=== PATIENT | male | born 1965 | race Caucasian/White ===

== ENCOUNTER 2017-02-14 19:06 | Inpatient (IN) | payer MEDICARE ==
[2017-02-14] MEDS ORDERED: Acetaminophen TAB* 325 MG PO ONE (19:37)
[2017-02-14] MEDS ORDERED: NS 0.9% 1000 ML*IV.FLUID IV ONE (19:37)
[2017-02-14] MEDS ORDERED: ceFAZolin 1 GM ADVAN(*) 1 GM in NS 0.9% 50 ML* 50 ML IVPB ONE (19:37)
--- NOTE | 2017-02-14 20:12 | RAD ---
INDICATION: Sepsis. COMPARISON: There are no prior studies available for comparison. TECHNIQUE: A portable view of the chest was obtained. FINDINGS: Cardiac and mediastinal contours appear to be within normal limits. The lungs are clear. No pleural effusion is seen. IMPRESSION: NO EVIDENCE FOR ACUTE DISEASE.
[2017-02-14 20:24] LABS: Hematocrit 42 % (42-52); Hemoglobin 14.3 g/dl (14.0-18.0); Mean Corpuscular HGB Conc 35 g/dl (31-36); Mean Corpuscular Hemoglobin 32 pg (27-31); Mean Corpuscular Volume 92 fL (80-94); Mean Platelet Volume 8 um3 (7.4-10.4); Red Blood Count 4.53 10^6/ul (4.0-5.4); Red Cell Distribution Width 13 % (10.5-15); White Blood Count 16.6 10^3/ul (3.5-10.8)
[2017-02-14 20:29] LABS: Add Diff/Slide Review? Slide Review Added; Comments Flag Yes
[2017-02-14 20:31] LABS: Urine Bilirubin Negative (Negative); Urine Glucose 3+(>=500 mg/dL) (Negative); Urine Nitrite Negative (Negative)
--- NOTE | 2017-02-14 20:36 | HP ---
H&P (Free Text) History and Physical: Mr Chaudhary is a 51M HX remote spinal injury w/ paraparesis presenting with sepsis 2nd cellulitis requiring admission for IVFs, IV ABX, & close monitoring to reduce risk of morbidity/mortality.
[2017-02-14 20:39] LABS: BUN/Creatinine Ratio 7.8 (8-20); Calcium 9.1 mg/dL (8.6-10.3); EGFR African American 138.1 (>60); EGFR Non-African American 107.4 (>60); Globulin 3.6 g/dL (2-4); Potassium 3.9 mmol/L (3.5-5.0); Total Bilirubin 0.7 mg/dL (0.2-1.0); Total Protein 7.6 g/dL (6.4-8.9)
[2017-02-14 20:41] LABS: Troponin I 0.03 ng/mL (<0.04)
[2017-02-14] MEDS ORDERED: LORazepam TAB(*) 1 MG PO SCH (22:00)
[2017-02-14] MEDS: Ibuprofen TAB* 600 MG PO PRN (22:50)
[2017-02-14] MEDS ORDERED: Ondansetron INJ* 2 MG/ML VIAL IV PRN (22:52)
[2017-02-14] MEDS: NS 0.9% 1000 ML* 1,000 ML IV SCH (23:18)
[2017-02-14] MEDS: Heparin VIAL(*) 5000 UNITS/ML VIAL (FIVE THOUSAND) SUBCUT SCH (23:28)
[2017-02-15] MEDS ORDERED: ceFAZolin 1 GM VIAL(*) 1 GM in NS 0.9% 50 ML* 50 ML IVPB ONE ×2
--- NOTE | 2017-02-15 00:10 | HP ---
CC: Dr. Pascual * HISTORY AND PHYSICAL: DATE OF ADMISSION: 02/14/17 PRIMARY CARE PROVIDER: None. ATTENDING PHYSICIAN: Blas Park MD * (dictated by Tiara Santiago NP). CHIEF COMPLAINT: Right lower extremity pain, redness and swelling. HISTORY OF PRESENT ILLNESS: Mr. 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 The patient states that 5 days ago, he developed fever and chills and he started taking Cipro 500 mg oral twice daily. He took this for 3 days. He reports loss of appetite and anxiety. He then noticed that his right lower extremity was red, swollen, and warm to the touch. He has lost his appetite. He reports straight cathing as needed throughout the day. He states that he had Cipro on hand from previous urinary tract infections. He denies any chest pain, cough, shortness of breath, nausea, vomiting, or diarrhea. He reports chronic low back pain and right hip pain due to an unhealed right femoral neck fracture. He is wheelchair bound and transfers himself. He reports that his right foot is usually larger than his left foot, but notes that often when he gets fevers, both legs swell more than usual. Due to his symptoms, he decided to present to the emergency room for further evaluation of his symptoms. While in the emergency room, the patient had labs that were significant for white blood cell count of 16.6, sodium of 124. He had a urinalysis that was unremarkable. He had a chest x-ray showing no evidence for acute disease. He had a lactic acid of 1.4 and the patient received 2450 mL of normal saline and IV ceftriaxone in addition to Tylenol. He was noted to have a 101.9 temperature. The hospitalists were asked to evaluate the patient for admission. PAST MEDICAL HISTORY: 1. 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 2. Hypertension. 3. Right femoral neck fracture. 4. Chronic low back pain. PAST SURGICAL HISTORY: Status post a fusion at T12. HOME MEDICATIONS: Include ibuprofen 400 mg oral every 6 hours as needed for fever or pain. ALLERGIES: ERYTHROMYCIN. FAMILY HISTORY: The patient denies any family history of coronary artery disease, diabetes mellitus. The patient's parents both had a history of skin cancer and the father with a history of rectal cancer. SOCIAL HISTORY: The patient quit smoking 8 months ago. Prior to that, he had a 20 to 25-year half a pack a day smoking history. The patient drinks 2 to 6 alcoholic beverages daily. He denies recreational drug use. The patient lives with his significant other, Quinn Funes. She will be his surrogate decision maker in the event he is unable to make decisions for himself. REVIEW OF SYSTEMS: I performed a 14-point review of systems. All the pertinent positives and negatives are mentioned in the history of present illness. The remaining review of systems are negative. PHYSICAL EXAMINATION GENERAL APPEARANCE: The patient is alert, pleasant, appears to be in no acute distress. VITAL SIGNS: Temperature 101.9, heart rate 143, respiratory rate 21, O2 sat 97 % on room air, blood pressure 183/92. HEENT: Normocephalic, atraumatic. Pupils are equal and reactive to light. Extraocular movements are intact. RESPIRATORY: There is no accessory muscle use. The lungs are clear to auscultation bilaterally. CARDIAC: Regular rate and rhythm. S1, S2 present. There are no murmurs, rubs or gallops heard. ABDOMEN: Soft, nontender, nondistended. There are bowel sounds present x4. EXTREMITIES: There is bilateral lower extremities 1+ on the left, 2+ on the right. DP and PT pulses are 2+ and symmetric. MUSCULOSKELETAL: There is no clubbing or cyanosis noted. The patient exhibits good strength in his upper extremities. NEUROLOGIC: The patient is alert and oriented x4. PSYCHOLOGIC: The patient is calm and cooperative. SKIN: The patient has erythema and warmth to his right lower extremity. DIAGNOSTIC STUDIES/LABORATORY DATA: Sodium 124, potassium 3.9, chloride 93, CO2 23, BUN 6, creatinine 0.77, and glucose 132. White blood cell count 16.6, hemoglobin 14.3, hematocrit 42, platelet count 237,000. Lactic acid 1.4. Urinalysis significant for specific gravity of 1.003 and glucose 3+. Chest x-ray from today. Radiologist's impression: No evidence for acute disease. IMPRESSION: Mr. Chaudhary is a 51-year-old male with past medical history significant for hypertension, T12 paraplegia, right femoral neck fracture and chronic low back pain, who presented to the emergency room with complaints of fever, chills, right lower extremity swelling, redness and warmth. He will admitted as an inpatient for sepsis secondary to cellulitis. ASSESSMENT/PLAN: 1. Sepsis secondary to cellulitis. The patient had blood cultures drawn. He received a bolus of normal saline of 2450 mL while in the emergency room. He also was initiated on cefazolin. We will continue the patient on cefazolin q.8 hours. We will follow his white blood cell count. There were no obvious open areas in his skin. We did attempt to obtain a wound culture in the emergency room. The patient is meeting SIRS criteria on admission with fever, tachycardia , tachypnea and leukocytosis. He has received fluid resuscitation and antibiotics. According to the qSOFA criteria, the patient has 1 point with tachypnea. 2. Hyponatremia. I suspect this is secondary to hypovolemia. We will give the patient IV fluids overnight. If this does not improve, we will do further workup for the hyponatremia. 3. Hypertension. The patient has been hypertensive in the emergency room. He reports that he is often hypertensive due to anxiety. His last blood pressure was 163/65. I will continue to monitor and consider starting him on antihypertensives if he continues to be hypertensive. 4. Tachycardia. I suspect this is in the setting of sepsis. The patient is receiving IV fluids. We will monitor him on telemetry. 5. Elevated troponin. The patient has a troponin of 0.03. He denies any chest pain, shortness of breath. He will be monitored on telemetry. No further workup will be completed at this time. 6. Alcohol abuse. The patient currently drinks 2 to 6 alcoholic beverages daily. We will place him on a [place] protocol and give him thiamine, multivitamins and folic acid. 7. Fluids, electrolytes, and nutrition. Regular diet. 8. Code status. Full code. 9. DVT prophylaxis. The patient is at high risk and will be placed on subcu heparin. 10. Disposition. Inpatient. TIME SPENT: The time for this admission was approximately 60 minutes, greater than half of that was spent with the patient and significant other discussing medications, past medical history, and the events leading up to his arrival today and performing a physical examination. TIARA BOWMAN, EYE SURGEON [id number]/[facility] #: [id number] [facility] CENTERSandra
[2017-02-15] MEDS: Acetaminophen TAB* 325 MG PO PRN ×6 (00:15→22:35)
[2017-02-15 07:09] LABS: Hematocrit 36 % (42-52); Hemoglobin 12.5 g/dl (14.0-18.0); Mean Corpuscular HGB Conc 35 g/dl (31-36); Mean Corpuscular Hemoglobin 32 pg (27-31); Mean Corpuscular Volume 93 fL (80-94); Mean Platelet Volume 8 um3 (7.4-10.4); Red Blood Count 3.93 10^6/ul (4.0-5.4); Red Cell Distribution Width 13 % (10.5-15)
[2017-02-15] MEDS: Heparin VIAL(*) 5000 UNITS/ML VIAL (FIVE THOUSAND) SUBCUT SCH ×3 (07:09→21:25)
[2017-02-15 07:20] LABS: BUN/Creatinine Ratio 7.1 (8-20); EGFR African American 154.2 (>60); EGFR Non-African American 119.9 (>60); Potassium 3.8 mmol/L (3.5-5.0)
[2017-02-15] MEDS ORDERED: ceFAZolin* 2 GM in NS 100 MLS Q8HR IVPB SCH (08:00)
[2017-02-15] MEDS: NS 0.9% 1000 ML* 1,000 ML IV SCH ×2 (08:47→23:49)
[2017-02-15] MEDS: ceFAZolin 2 GM PREMIX (*) 2 GM/50 ML BAG IVPB SCH ×3 (08:48→23:51)
[2017-02-15] MEDS: Folic Acid TAB* 1 MG PO SCH (08:49)
[2017-02-15] MEDS: Multivitamins/Minerals TAB PO SCH (08:49)
[2017-02-15] MEDS: Thiamine TAB* 100 MG TAB PO SCH (08:49)
[2017-02-15] MEDS: Ibuprofen TAB* 600 MG PO PRN ×2 (11:22→21:17)
--- NOTE | 2017-02-15 20:43 | PN ---
Subjective Date of Service: 02/15/17 Interval History: . fever reduced paraplegic from remote traumatic accident - lower extremity swelling is baseline , but RLE is more than normal. bright red areas in mid tibial region, anteriorly and laterally -- no skin breakdown noted. on ancef and doing well. IVF ongoing dark concentrated urine at bedside - encouraged PO intake and fluids especially! . Family History: Unchanged from Admission Social History: Unchanged from Admission Past Medical History: Unchanged from Admission Objective Active Medications: . Acetaminophen (Tylenol Tab*) 650 mg PO Q4H PRN PRN Reason: FEVER/PAIN Last Admin: 02/15/17 17:39 Dose: 650 mg Folic Acid (Folvite Tab*) 1 mg PO DAILY [facility] Last Admin: 02/15/17 08:49 Dose: 1 mg Heparin Sodium (Porcine) (Heparin Vial(*)) 5,000 units SUBCUT Q8HR [facility] Last Admin: 02/15/17 13:30 Dose: 5,000 units Sodium Chloride (Ns 0.9% 1000 Ml*) 1,000 mls @ 125 mls/hr IV PER RATE [facility] Last Admin: 02/15/17 08:47 Dose: 125 mls/hr Cefazolin Sodium/Dextrose (Kefzol 2 Gm Premix(*)) 2 gm in 50 mls @ 100 mls/hr IVPB Q8H [facility] Last Admin: 02/15/17 16:55 Dose: 100 mls/hr Ibuprofen (Motrin Tab*) 600 mg PO Q6H PRN PRN Reason: FEVER/PAIN Last Admin: 02/15/17 11:22 Dose: 600 mg Lorazepam (Ativan Tab(*)) 0 - 6 mg PO .PER [facility] PROTOCOL [facility] PRN Reason: Protocol Multivitamins/Minerals (Theragran/Minerals Tab*) 1 tab PO DAILY [facility] Last Admin: 02/15/17 08:49 Dose: 1 tab Ondansetron HCl (Zofran Inj*) 4 mg IV Q6H PRN PRN Reason: NAUSEA Thiamine HCl (Vitamin B-1 Tab*) 100 mg PO DAILY [facility] Last Admin: 02/15/17 08:49 Dose: 100 mg . Vital Signs 02/14/17 02/14/17 02/14/17 20:39 21:00 21:21 Temperature Pulse Rate 117 116 Respiratory 18 18 22 Rate Blood Pressure 144/72 (mmHg) O2 Sat by Pulse 96 98 Oximetry 02/14/17 02/14/17 02/14/17 21:30 21:46 22:00 Temperature 99.1 F Pulse Rate 114 124 Respiratory 17 25 22 Rate Blood Pressure 145/70 156/90 (mmHg) O2 Sat by Pulse 98 98 Oximetry Oxygen Devices in Use Now: None Appearance: NAD Eyes: No Scleral Icterus Ears/Nose/Mouth/Throat: Clear Oropharnyx Neck: NL Appearance and Movements; NL JVP Respiratory: Symmetrical Chest Expansion and Respiratory Effort Cardiovascular: NL Sounds; No Murmurs; No JVD Abdominal: NL Sounds; No Tenderness; No Distention Lymphatic: No Cervical Adenopathy Extremities: - - RLE>LLE edema with red cellulitic tissue on R anterio-lateral leg. Skin: No Nodules or Sclerosis, - - see extremity for skin description Neurological: Alert and Oriented x 3 Lines/Tubes/Other Access: Clean, Dry and Intact Peripheral IV Nutrition: Taking PO's Result Diagrams: 02/15/17 06:18 02/15/17 06:50 Microbiology and Other Data: Microbiology 02/14/17 20:36 Skin and Soft Tissue MRSA/MSSA (PCR - Final Foot Right Mrsa Negative S.aureus Positive Gram Stain - Final Wound Culture - Preliminary Staphylococcus Aureus Assess/Plan/Problems-Billing . Assessment: 51 yo paraplegic man with RLE cellulitis and SEPSIS. . Current meds reviewed: - Acetaminophen (Tylenol Tab*) 650 mg PO Q4H PRN FEVER/PAIN - Folic Acid (Folvite Tab*) 1 mg PO DAILY - Heparin 5,000 units SUBCUT Q8HR - NS 1,000 mls @ 125 mls/hr IV - Cefazolin 2 gm IVPB Q8H - Ibuprofen (Motrin Tab) 600 mg PO Q6H PRN FEVER/PAIN - Lorazepam (Ativan Tab) 0 - 6 mg PO .PER [facility] PROTOCOL - Multivitamins/Minerals (Theragran/Minerals Tab) 1 tab PO DAILY - Ondansetron HCl (Zofran Inj) 4 mg IV Q6H PRN NAUSEA - Thiamine HCl (Vitamin B-1 Tab) 100 mg PO DAILY - - Patient Problems (1) Cellulitis of right leg without foot Current Visit: Yes Status: Acute Priority: High Code(s): L03.115 - CELLULITIS OF RIGHT LOWER LIMB (2) Sepsis Current Visit: Yes Status: Acute Priority: High Comment: - Aggressive IVF - high fever, elevated WBC, tachycardia on admission - obviously infected leg (3) Alcohol abuse Current Visit: Yes Status: Acute Priority: High Code(s): F10.10 - ALCOHOL ABUSE, UNCOMPLICATED Comment: - on [facility] protocol - MVI, folate, thiamine ongoing. - aggressive IVF
[2017-02-15] MEDS ORDERED: hydrALAZINE IV* 20 MG/ML VIAL IV PRN (22:43)
[2017-02-15] MEDS: CMCS: Melatonin (NF) 3 MG TAB PO PRN (23:53)
[2017-02-16] MEDS: Heparin VIAL(*) 5000 UNITS/ML VIAL (FIVE THOUSAND) SUBCUT SCH ×3 (06:09→21:37)
[2017-02-16] MEDS: Acetaminophen TAB* 325 MG PO PRN ×4 (06:18→22:32)
[2017-02-16] MEDS: Multivitamins/Minerals TAB PO SCH (09:15)
[2017-02-16] MEDS: Thiamine TAB* 100 MG TAB PO SCH (09:15)
[2017-02-16] MEDS: Folic Acid TAB* 1 MG PO SCH (09:15)
[2017-02-16] MEDS: Ibuprofen TAB* 600 MG PO PRN ×2 (09:21→17:19)
[2017-02-16] MEDS: ceFAZolin 2 GM PREMIX (*) 2 GM/50 ML BAG IVPB SCH ×2 (09:51→17:21)
[2017-02-16] MEDS: NS 0.9% 1000 ML* 1,000 ML IV SCH (12:49)
--- NOTE | 2017-02-16 17:24 | PN ---
Subjective Date of Service: 02/16/17 Interval History: . Residual fevers Feels much better than at admission Eating ok Still significant leg swelling Denies new s/sx Thinks he may not be ready to go home on Sunday...does not feel at his baseline (though better). . Family History: Unchanged from Admission Social History: Unchanged from Admission Past Medical History: Unchanged from Admission Objective Active Medications: . Acetaminophen (Tylenol Tab*) 650 mg PO Q4H PRN PRN Reason: FEVER/PAIN Last Admin: 02/16/17 12:48 Dose: 650 mg Folic Acid (Folvite Tab*) 1 mg PO DAILY [facility] Last Admin: 02/16/17 09:15 Dose: 1 mg Heparin Sodium (Porcine) (Heparin Vial(*)) 5,000 units SUBCUT Q8HR [facility] Last Admin: 02/16/17 14:33 Dose: 5,000 units Hydralazine HCl (Apresoline Iv*) 10 mg IV Q4H PRN PRN Reason: Systolic >170 Sodium Chloride (Ns 0.9% 1000 Ml*) 1,000 mls @ 125 mls/hr IV PER RATE [facility] Last Admin: 02/16/17 12:49 Dose: 125 mls/hr Cefazolin Sodium/Dextrose (Kefzol 2 Gm Premix(*)) 2 gm in 50 mls @ 100 mls/hr IVPB Q8H [facility] Last Admin: 02/16/17 09:51 Dose: 100 mls/hr Ibuprofen (Motrin Tab*) 600 mg PO Q6H PRN PRN Reason: FEVER/PAIN Last Admin: 02/16/17 09:21 Dose: 600 mg Melatonin (Melatonin (Nf)) 3 mg PO BEDTIME PRN; Protocol PRN Reason: Sleep Last Admin: 02/15/17 23:53 Dose: 3 mg Multivitamins/Minerals (Theragran/Minerals Tab*) 1 tab PO DAILY [facility] Last Admin: 02/16/17 09:15 Dose: 1 tab Ondansetron HCl (Zofran Inj*) 4 mg IV Q6H PRN PRN Reason: NAUSEA Thiamine HCl (Vitamin B-1 Tab*) 100 mg PO DAILY [facility] Last Admin: 02/16/17 09:15 Dose: 100 mg . Vital Signs 11/09/17 11/09/17 11/09/17 18:32 20:00 20:31 Temperature 102.6 F 101.8 F Pulse Rate 109 109 Respiratory 17 18 19 Rate Blood Pressure 153/73 174/74 (mmHg) O2 Sat by Pulse 97 96 98 Oximetry 02/15/17 02/15/17 02/15/17 21:23 22:20 22:40 Temperature 102.1 F Pulse Rate Respiratory Rate Blood Pressure 185/90 160/70 (mmHg) O2 Sat by Pulse Oximetry Oxygen Devices in Use Now: None Appearance: mid aged, appears stated age Ears/Nose/Mouth/Throat: Clear Oropharnyx Respiratory: Symmetrical Chest Expansion and Respiratory Effort Cardiovascular: NL Sounds; No Murmurs; No JVD Abdominal: NL Sounds; No Tenderness; No Distention Extremities: - - R>L edema, mostly in feet. Skin: - - red R rabago and lateral lower leg...no extension from previous exam. hidden crack in between toes from which wound culture was taken. this was not the center of his cellulitis and I favor strep as a more likely causal agent at the level of his rabago. Neurological: Alert and Oriented x 3 Lines/Tubes/Other Access: Clean, Dry and Intact Peripheral IV Nutrition: Taking PO's Result Diagrams: 02/15/17 06:18 02/15/17 06:50 Microbiology and Other Data: Microbiology 02/14/17 20:36 Skin and Soft Tissue MRSA/MSSA (PCR - Final Foot Right Mrsa Negative S.aureus Positive Gram Stain - Final Wound Culture - Preliminary Staphylococcus Aureus Assess/Plan/Problems-Billing . Assessment: 51 yo paraplegic man with RLE cellulitis and SEPSIS. . Current meds reviewed: - Acetaminophen (Tylenol Tab*) 650 mg PO Q4H PRN FEVER/PAIN - Folic Acid (Folvite Tab*) 1 mg PO DAILY - Heparin 5,000 units SUBCUT Q8HR - NS 1,000 mls @ 125 mls/hr IV - Cefazolin 2 gm IVPB Q8H - Ibuprofen (Motrin Tab) 600 mg PO Q6H PRN FEVER/PAIN - Lorazepam (Ativan Tab) 0 - 6 mg PO .PER [facility] PROTOCOL - Multivitamins/Minerals (Theragran/Minerals Tab) 1 tab PO DAILY - Ondansetron HCl (Zofran Inj) 4 mg IV Q6H PRN NAUSEA - Thiamine HCl (Vitamin B-1 Tab) 100 mg PO DAILY . - Patient Problems (1) Cellulitis of right leg without foot Current Visit: Yes Status: Acute Priority: High Code(s): L03.115 - CELLULITIS OF RIGHT LOWER LIMB Comment: - Staph (MSSA) - from wound between toes. S to ancef --> will continue - no fevers > 100F (imprved) - WBC down, will follow - check CRP . (2) Sepsis Current Visit: Yes Status: Acute Priority: High Comment: - Aggressive IVF - now can stop - high fever, elevated WBC, tachycardia on admission - obviously infected leg. (3) Alcohol abuse Current Visit: Yes Status: Acute Priority: High Code(s): F10.10 - ALCOHOL ABUSE, UNCOMPLICATED Comment: - on [facility] protocol / no signs of withdrawal so far. - MVI, folate, thiamine ongoing. - aggressive IVF at admission for 24+ hours (4) Paraplegic spinal paralysis Current Visit: Yes Status: Chronic Priority: High Code(s): G82.20 - PARAPLEGIA, UNSPECIFIED Comment: - noted
[2017-02-16 18:01] LABS: Hematocrit 39 % (42-52); Hemoglobin 13.1 g/dl (14.0-18.0); Mean Corpuscular HGB Conc 34 g/dl (31-36); Mean Corpuscular Hemoglobin 31 pg (27-31); Mean Corpuscular Volume 93 fL (80-94); Mean Platelet Volume 8 um3 (7.4-10.4); Red Blood Count 4.18 10^6/ul (4.0-5.4); Red Cell Distribution Width 13 % (10.5-15); White Blood Count 13.5 10^3/ul (3.5-10.8)
[2017-02-16 18:17] LABS: Albumin 3.2 g/dL (3.2-5.2); BUN/Creatinine Ratio 7.6 (8-20); C Reactive Protein 259.8 mg/L (< 5.00); Calcium 8.4 mg/dL (8.6-10.3); EGFR Non-African American 128.3 (>60); Globulin 3.4 g/dL (2-4); Potassium 4.2 mmol/L (3.5-5.0); Total Bilirubin 0.6 mg/dL (0.2-1.0); Total Protein 6.6 g/dL (6.4-8.9)
[2017-02-16] MEDS: CMCS: Melatonin (NF) 3 MG TAB PO PRN (22:31)
[2017-02-17] MEDS: ceFAZolin 2 GM PREMIX (*) 2 GM/50 ML BAG IVPB SCH ×3 (00:18→16:54)
[2017-02-17] MEDS: Ibuprofen TAB* 600 MG PO PRN ×3 (00:35→16:53)
[2017-02-17] MEDS: Acetaminophen TAB* 325 MG PO PRN ×3 (02:32→22:13)
[2017-02-17] MEDS: Heparin VIAL(*) 5000 UNITS/ML VIAL (FIVE THOUSAND) SUBCUT SCH ×3 (05:43→22:13)
[2017-02-17] MEDS: Thiamine TAB* 100 MG TAB PO SCH (08:39)
[2017-02-17] MEDS: Multivitamins/Minerals TAB PO SCH (08:39)
[2017-02-17] MEDS: Folic Acid TAB* 1 MG PO SCH (08:40)
[2017-02-17] MEDS: Sulfamethox/Trimethoprim DS 800/160* TAB PO SCH ×2 (10:24→22:13)
--- NOTE | 2017-02-17 13:05 | RAD ---
HISTORY: Right leg edema COMPARISONS: None relevant TECHNIQUE: Multiple transverse and longitudinal ultrasound images were obtained of the right lower extremity from the level of the common femoral vein inferiorly through to the infrapopliteal veins using grayscale, color Doppler, and spectral Doppler imaging with and without compression and with augmentation. Comparison images were obtained of the contralateral common femoral vein. FINDINGS: VEINS: The venous system of the right lower extremity is compressible throughout its course, with normal flow on color Doppler imaging and normal response to augmentation on spectral Doppler imaging. SOFT TISSUES: Unremarkable. OTHER FINDINGS: There are subcentimeter short axis lymph nodes in the right inguinal region IMPRESSION: 1. NO RIGHT LOWER EXTREMITY DEEP VEIN THROMBOSIS 2. SUBCENTIMETER SHORT AXIS RIGHT INGUINAL LYMPH NODES
[2017-02-17] MEDS: Tolnaftate 1% CREAM* 15 GM TOPICAL SCH ×2 (13:25→22:19)
--- NOTE | 2017-02-17 18:05 | PN ---
Subjective Date of Service: 02/17/17 Interval History: . Still getting better. not at baseline WBC marginally u checking doppler adding bactrim. adding tinactin for fungal / cutaneous rui infection. asking staff mechanical engineer for gentle compression likely dc tomorrow. . Family History: Unchanged from Admission Social History: Unchanged from Admission Past Medical History: Unchanged from Admission Objective Active Medications: Acetaminophen (Tylenol Tab*) 650 mg PO Q4H PRN PRN Reason: FEVER/PAIN Last Admin: 02/17/17 13:12 Dose: 650 mg Folic Acid (Folvite Tab*) 1 mg PO DAILY [facility] Last Admin: 02/17/17 08:40 Dose: 1 mg Heparin Sodium (Porcine) (Heparin Vial(*)) 5,000 units SUBCUT Q8HR [facility] Last Admin: 02/17/17 13:13 Dose: 5,000 units Hydralazine HCl (Apresoline Iv*) 10 mg IV Q4H PRN PRN Reason: Systolic >170 Cefazolin Sodium/Dextrose (Kefzol 2 Gm Premix(*)) 2 gm in 50 mls @ 100 mls/hr IVPB Q8H [facility] Last Admin: 02/17/17 16:54 Dose: 100 mls/hr Ibuprofen (Motrin Tab*) 600 mg PO Q6H PRN PRN Reason: FEVER/PAIN Last Admin: 02/17/17 16:53 Dose: 600 mg Melatonin (Melatonin (Nf)) 3 mg PO BEDTIME PRN; Protocol PRN Reason: Sleep Last Admin: 02/16/17 22:31 Dose: 3 mg Multivitamins/Minerals (Theragran/Minerals Tab*) 1 tab PO DAILY [facility] Last Admin: 02/17/17 08:39 Dose: 1 tab Ondansetron HCl (Zofran Inj*) 4 mg IV Q6H PRN PRN Reason: NAUSEA Thiamine HCl (Vitamin B-1 Tab*) 100 mg PO DAILY [facility] Last Admin: 02/17/17 08:39 Dose: 100 mg Tolnaftate (Tinactin 1% Cream*) 1 applic TOPICAL BID [facility] Last Admin: 02/17/17 13:25 Dose: 1 applic Trimethoprim/Sulfamethoxazole (Bactrim Ds 800/160 Tab*) 1 tab PO BID [facility] Last Admin: 02/17/17 10:24 Dose: 1 tab Vital Signs 02/16/17 02/16/1717 19:53 20:00 00:36 Temperature 99.4 F 101.0 F Pulse Rate 100 106 Respiratory 14 16 Rate Blood Pressure 150/71 149/61 (mmHg) O2 Sat by Pulse 97 97 98 Oximetry 02/17/17 02/17/17 02/17/17 03:26 08:00 08:04 Temperature 97.9 F 99.0 F Pulse Rate 97 93 Respiratory 20 16 16 Rate Blood Pressure 124/68 141/69 (mmHg) O2 Sat by Pulse 98 100 98 Oximetry 02/17/17 02/17/17 02/17/17 11:09 16:05 17:56 Temperature 97.7 F 98.5 F Pulse Rate 98 111 Respiratory 16 22 Rate Blood Pressure 153/82 175/93 168/82 (mmHg) O2 Sat by Pulse 99 100 Oximetry Oxygen Devices in Use Now: None Result Diagrams: 02/16/17 17:46 02/16/17 17:46 Microbiology and Other Data: Microbiology 02/14/17 20:36 Skin and Soft Tissue MRSA/MSSA (PCR - Final Foot Right Mrsa Negative S.aureus Positive Gram Stain - Final Wound Culture - Preliminary Staphylococcus Aureus Assess/Plan/Problems-Billing . Assessment: 51 yo paraplegic man with RLE cellulitis and SEPSIS. . Current meds reviewed: - Acetaminophen (Tylenol Tab*) 650 mg PO Q4H PRN FEVER/PAIN - Folic Acid (Folvite Tab*) 1 mg PO DAILY - Heparin 5,000 units SUBCUT Q8HR - NS 1,000 mls @ 125 mls/hr IV - Cefazolin 2 gm IVPB Q8H - Ibuprofen (Motrin Tab) 600 mg PO Q6H PRN FEVER/PAIN - Lorazepam (Ativan Tab) 0 - 6 mg PO .[facility] PROTOCOL - Multivitamins/Minerals (Theragran/Minerals Tab) 1 tab PO DAILY - Ondansetron HCl (Zofran Inj) 4 mg IV Q6H PRN NAUSEA - Thiamine HCl (Vitamin B-1 Tab) 100 mg PO DAILY . - Patient Problems (1) Cellulitis of right leg without foot Current Visit: Yes Status: Acute Priority: High Code(s): L03.115 - CELLULITIS OF RIGHT LOWER LIMB Comment: - Staph (MSSA) - from wound between toes. S to ancef --> will continue - no fevers > 100F (imprved) - WBC down, will follow - check CRP . (2) Sepsis Current Visit: Yes Status: Acute Priority: High Comment: - Aggressive IVF - now can stop - high fever, elevated WBC, tachycardia on admission - obviously infected leg. (3) Alcohol abuse Current Visit: Yes Status: Acute Priority: High Code(s): F10.10 - ALCOHOL ABUSE, UNCOMPLICATED Comment: - on [facility] protocol / no signs of withdrawal so far. - MVI, folate, thiamine ongoing. - aggressive IVF at admission for 24+ hours (4) Paraplegic spinal paralysis Current Visit: Yes Status: Chronic Priority: High Code(s): G82.20 - PARAPLEGIA, UNSPECIFIED Comment: - noted
[2017-02-17] MEDS: CMCS: Melatonin (NF) 3 MG TAB PO PRN (22:33)
[2017-02-18] MEDS: ceFAZolin 2 GM PREMIX (*) 2 GM/50 ML BAG IVPB SCH ×2 (00:50→08:11)
[2017-02-18] MEDS: Ibuprofen TAB* 600 MG PO PRN (00:58)
[2017-02-18] MEDS: Heparin VIAL(*) 5000 UNITS/ML VIAL (FIVE THOUSAND) SUBCUT SCH (05:34)
[2017-02-18 06:51] LABS: Hematocrit 36 % (42-52); Hemoglobin 12.1 g/dl (14.0-18.0); Mean Corpuscular HGB Conc 34 g/dl (31-36); Mean Corpuscular Hemoglobin 32 pg (27-31); Mean Corpuscular Volume 93 fL (80-94); Mean Platelet Volume 8 um3 (7.4-10.4); Red Blood Count 3.81 10^6/ul (4.0-5.4); Red Cell Distribution Width 13 % (10.5-15); White Blood Count 12.5 10^3/ul (3.5-10.8)
[2017-02-18 06:55] LABS: Add Diff/Slide Review? Slide Review Added; Comments Flag Yes
[2017-02-18 07:10] LABS: BUN/Creatinine Ratio 7.6 (8-20); Calcium 8.5 mg/dL (8.6-10.3); EGFR Non-African American 128.3 (>60); Magnesium 2.2 mg/dL (1.9-2.7); Potassium 4.2 mmol/L (3.5-5.0)
[2017-02-18] MEDS: Sulfamethox/Trimethoprim DS 800/160* TAB PO SCH (08:11)
[2017-02-18] MEDS: Thiamine TAB* 100 MG TAB PO SCH (08:11)
[2017-02-18] MEDS: Multivitamins/Minerals TAB PO SCH (08:11)
[2017-02-18] MEDS: Folic Acid TAB* 1 MG PO SCH (08:12)
[2017-02-18] MEDS: Tolnaftate 1% CREAM* 15 GM TOPICAL SCH (08:18)
[2017-02-18] MEDS: Acetaminophen TAB* 325 MG PO PRN (11:32)
[2017-02-18 12:38] VITALS: BP 166/78
--- NOTE | 2017-02-18 20:22 | PN ---
Hospitalist Progress Note . HOSPITALIST DISCHARGE NOTE: See dc instructions and summary by me. Patient stable for dc dc instructions reviewed with the patient at the bedside. DC patient home today.
--- NOTE | 2017-02-19 06:59 | DS ---
DISCHARGE SUMMARY: DATE OF ADMISSION: 02/14/17 DATE OF DISCHARGE: 02/18/17 PRIMARY CARE PROVIDER: None. PRINCIPAL DISCHARGE DIAGNOSIS: Right lower extremity cellulitis and sepsis in the setting of T12 paraplegia and chronic right lower extremity swelling following remote trauma. SECONDARY DIAGNOSIS: 1. 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 2. Baseline hypertension. 3. History of right femoral neck fracture and right tib-fib fracture with chronic lymphedema on the ipsilateral extremity. 4. Chronic low back pain. DISCHARGE MEDICATION REGIMEN: 1. Ibuprofen 400 mg by mouth every 6 hours as needed for fever/pain. 2. New: Bactrim double strength 1 tab by mouth twice daily x6 days (12 tabs dispensed). 3. Tinactin ([id number]) antifungal foot spray. STUDIES DONE DURING THE HOSPITALIZATION: Right lower extremity ultrasound showing no DVT. HISTORY OF PRESENT ILLNESS AND HOSPITAL COURSE: Please see the H and P by nurse practitioner Yanna Hugo under the supervision of Blas Park MD. This was on 02/14/17. In brief, Mr. Chaudhary is a 51-year-old man with no primary care provider, who came to the emergency room after 5 days of fever and chills. The patient was prescribed, in a walk-in clinic, ciprofloxacin twice daily. He took this for 3 days and lost his appetite and noticed his right lower extremity was becoming increasingly red and swollen and warm to the touch. The patient had Cipro from previous urinary tract infection. The patient is wheelchair bound and can transfer himself. He is accompanied by a girlfriend who helps him in the outpatient setting. The patient was noted to have an elevated white blood cell count of 16.6 and a depressed sodium at 124. The patient was started on IV ceftriaxone and his temperature was measured at 101.9. The patient was deemed to be septic. The patient was admitted to the medicine service. Again, he was given initially ceftriaxone, but then changed to Ancef on admission. The patient had aggressive fluids given for 36 hours. The patient's blood pressure remained adequate. His fever curve gently trended downward. He had a fairly massive swelling. On day 3 he was transitioned to oral Bactrim in addition to Ancef, and he is being discharged on hospital day 4, now that he is not having recurrent fevers. We did try a lower extremity compression with Nilo bandages. I recommended out-patient compression stockings, but the patient is concerned about his ability to get these on and off. I have given him the number to the physician referral center at the [facility] ([phone]) . I asked that he establish a primary care provider and issues like this can be worked on beyond the hospitalization. The patient was also counseled about skin integrity and I think part of the problem was a fungal infection in his toes which provides a portal of entry for cutaneous bacterial elaine. The patient agreed to be more vigilant in his skin care and try to reduce lower extremity edema. We talked about elevating his extremities and that lower extremity edema was also a risk factor for recurrent cellulitis. We further discussed the concept that cellulitis could be a recurrent problem in skin areas that have been afflicted by infection/cellulitis. Mr. Chaudhary is currently stable. He will complete his course of Bactrim. I gave him careful return to ED instructions, should he experience worrisome symptoms including, but not limited to, recurrent fevers, chills, worsening leg erythema or swelling or any other worrisome symptoms and he said he will comply with these instructions. The patient was eager to be discharged today and said that he would follow up with creating a primary care provider during the work week. CONDITION ON DISCHARGE: Stable. TIME SPENT: Total time taken to discharge Ms. Chaudhary was 45 minutes, greater than half that time spent going over the discharge instructions [id number] with the patient at the bedside. [id number]/[facility] #: [id number] REGINA
== END 2017-02-18 14:05 | disposition home or self-care (01) | DRG 872 ==
LOC: ED 19:06 → MED 20:33
PROVIDERS: ADMIT Hospitalist; ATTEND Internal Medicine
DX: A41.9 Sepsis, unspecified organism (principal); G82.20 Paraplegia, unspecified; E87.1 Hypo-osmolality and hyponatremia; L03.115 Cellulitis of right lower limb; S72.001P Fracture of unspecified part of neck of right femur, subsequent encounter for closed fracture with malunion; B95.61 Methicillin susceptible Staphylococcus aureus infection as the cause of diseases classified elsewhere; B95.1 Streptococcus, group B, as the cause of diseases classified elsewhere; S24.104S Unspecified injury at T11-T12 level of thoracic spinal cord, sequela; W19.XXXS Unspecified fall, sequela; I10 Essential (primary) hypertension; M54.5 Low back pain; W19.XXXD Unspecified fall, subsequent encounter; E86.1 Hypovolemia; F10.10 Alcohol abuse, uncomplicated; R74.8 Abnormal levels of other serum enzymes; I89.0 Lymphedema, not elsewhere classified; Z99.3 Dependence on wheelchair; Z79.1 Long term (current) use of non-steroidal anti-inflammatories (NSAID); Z88.1 Allergy status to other antibiotic agents; Z80.0 Family history of malignant neoplasm of digestive organs; Z80.8 Family history of malignant neoplasm of other organs or systems; Z87.891 Personal history of nicotine dependence
CPT/HCPCS: 36415; 71010; 80048; 80053; 81003; 83605; 83735; 84484; 85025; 85610; 85730; 86140; 87040; 87070; 87077; 87184; 87186; 87205; 87640; 87641; A9270-GY; J0690; J1644

== ENCOUNTER 2017-12-08 13:46 | Emergency (ER) | payer MEDICARE ==
[2017-12-08] MEDS ORDERED: cefTRIAXone VIAL(*) 1,000 MG VIAL IM ONE (14:39)
[2017-12-08] MEDS ORDERED: Lidocaine 1% MPF* 2 ML VIAL INJ ONE (14:40)
--- NOTE | 2017-12-08 14:56 | UC ---
HPI Febrile Illness - HPI Summary HPI Summary: patient had a fever of 100.6 last night and felt generally pretty bad---he had some Bactrim at home so he took one last night and one this morning. He has not had fevers today and actually feels well---no cough, nausea, vomiting, rash sores or open areas, patient does straight cath - History of Current Complaint Chief Complaint: UCGeneralIllness Time Seen by Provider: 12/08/17 14:09 Hx Obtained From: Patient Onset/Duration: Started Days Ago - 1 Time of Onset: 17:00 Timing: Intermittent Temperature: 100.6 F Initial Severity: Moderate Current Severity: None Pain Intensity: 0 Pain Scale Used: 0-10 Numeric Aggravating Factors: Nothing Alleviating Factors: OTC Medicine - Additional Pertinent History Primary Care Physician: TIMO - Allergy/Home Medications Allergies/Adverse Reactions: Allergies Allergy/AdvReac Type Severity Reaction Status Date / Time erythromycin base Allergy Stomach Verified 12/08/17 13:56 Cramps Home Medications: Home Medications Sulfamethox/Trimethoprim DS* [Bactrim DS 800/160 TAB*] 1 tab BID 12/08/17 [ History Confirmed 12/08/17] PMH/Surg Hx/FS Hx/Imm Hx Previously Healthy: No - parapalegia secondary to a t12 fx - Surgical History Surgical History: Yes Surgery Procedure, Year, and Place: Fusion at T12 - Family History Known Family History: Positive: Diabetes Negative: Hypertension - Social History Occupation: Employed Full-time Lives: Alone Alcohol Use: Daily Alcohol Amount: 2-3 beers daily Substance Use Type: None Smoking Status (MU): Former Smoker Type: Cigarettes Have You Smoked in the Last Year: Yes Household Exposure Type: Cigarettes - Immunization History Most Recent Influenza Vaccination: Fall 2015 Most Recent Tetanus Shot: UTD Most Recent Pneumonia Vaccination: Never Review of Systems Constitutional: Fever, Fatigue Skin: Negative Eyes: Negative ENT: Negative Respiratory: Negative Cardiovascular: Negative Gastrointestinal: Negative Genitourinary: Negative Motor: Negative Neurovascular: Negative Musculoskeletal: Negative Neurological: Negative Psychological: Negative Is Patient Immunocompromised?: No All Other Systems Reviewed And Are Negative: Yes Physical Exam Triage Information Reviewed: Yes Appearance: Well-Appearing, No Pain Distress, Well-Nourished Vital Signs: Initial Vital Signs Temp 99.3 F 12/08/17 13:58 Pulse 115 12/08/17 13:58 Resp 22 12/08/17 13:58 Pulse Ox 100 12/08/17 13:58 Vital Signs Reviewed: Yes Eye Exam: Normal Eyes: Positive: Conjunctiva Clear ENT Exam: Normal ENT: Positive: Normal ENT inspection, Hearing grossly normal. Negative: Nasal congestion, Trismus, Muffled voice, Hoarse voice Dental Exam: Normal Neck exam: Normal Neck: Positive: Supple, Nontender, No Lymphadenopathy Respiratory Exam: Normal Respiratory: Positive: Chest non-tender, Lungs clear, Normal breath sounds, No respiratory distress, No accessory muscle use Cardiovascular Exam: Normal Cardiovascular: Positive: No Murmur, Pulses Normal, Brisk Capillary Refill, Tachycardia - patient reports this as his usual Abdominal Exam: Normal Abdomen Description: Positive: Nontender, No Organomegaly, Soft. Negative: CVA Tenderness (R), CVA Tenderness (L) Musculoskeletal Exam: Normal Musculoskeletal: Positive: Strength Intact, ROM Intact, No Edema Neurological Exam: Normal Psychological Exam: Normal Skin Exam: Normal Diagnostics - Laboratory Diagnostic Studies Completed/Ordered: leukoesterase +3 Course/Dx - Course Assessment/Plan: culture urine, 1 gm rocephin continue bactrim referal to pcp for re-check and blood pressure manangement, low threshold to go to ED should fever return or sx worsen in any way - Diagnoses Clinic Provider Diagnoses: UTI, Elevated blood pressure with out current dx of hypertension Discharge - Sign-Out/Discharge Documenting (check all that apply): Patient Departure All imaging exams completed and their final reports reviewed: No Studies - Discharge Plan Condition: Stable Disposition: HOME Prescriptions: Sulfamethox/Trimethoprim DS* [Bactrim DS 800/160 TAB*] 1 tab PO BID #18 tab Patient Education Materials: Urinary Tract Infection in Men (ED), Hypertension (ED) Referrals: [facility] [place] PHYSICIAN REFERRAL [Outside] - 3 Days Eriberto [place]E[facility] [Medical Doctor] - 3 Days - Billing Disposition and Condition Condition: STABLE Disposition: Home
== END 2017-12-08 15:34 | disposition home or self-care (01) ==
LOC: UCCORT 13:46
DX: J06.9 Acute upper respiratory infection, unspecified (principal); R03.0 Elevated blood-pressure reading, without diagnosis of hypertension; Z88.1 Allergy status to other antibiotic agents; Z87.891 Personal history of nicotine dependence
CPT/HCPCS: 81003; 87086; 96372; 99212; G0463; J0696

== ENCOUNTER 2018-02-12 14:20 | Emergency (ER) | payer MEDICARE ==
--- NOTE | 2018-02-12 16:06 | ED ---
Lower Extremity - HPI Summary HPI Summary: pt presents for evaluation of bruising to his left inner ankle for which he has no idea how it occurred. he also noted a bruise to his left knee several weeks ago. he states he has no true pcp. his pmnr doctor tends to all of his primary care issues at this point. he denies any trauma or new medications. he did state that he just got a new wheelchair 3 weeks ago. - History of Current Complaint Chief Complaint: UCLowerExtremity Stated Complaint: LEFT FOOT COMPLAINT Hx Obtained From: Patient Mechanism Of Injury: Unknown Onset of Pain: Days Onset/Duration: Days Severity Initially: Mild Severity Currently: Mild Pain Intensity: 0 - Allergies/Home Medications Allergies/Adverse Reactions: Allergies Allergy/AdvReac Type Severity Reaction Status Date / Time erythromycin base Allergy Stomach Verified 12/08/17 13:56 Cramps Home Medications: Home Medications NK [No Home Medications Reported] 02/12/18 [History Confirmed 02/12/18] PMH/Surg Hx/FS Hx/Imm Hx Previously Healthy: Yes Endocrine/Hematology History: Denies: Hx Diabetes Cardiovascular History: Reports: Hx Hypertension GI History: Reports: Hx Ulcer - suspected gastric History: Reports: Other Problems/Disorders - UTI Musculoskeletal History: Reports: Hx Back Problems - Low back pain, Hx Orthopedic Injury - Right femoral neck fracture, Other Musculoskeletal History - T-12 paraplegic Sensory History: Reports: Hx Contacts or Glasses Denies: Hx Legally Blind, Hx Deafness, Hx Hearing Aid Opthamlomology History: Reports: Hx Contacts or Glasses Denies: Hx Legally Blind Neurological History: Reports: Hx Spinal Cord Injury - T12 with fusion - Surgical History Surgery Procedure, Year, and Place: Fusion at T12 Infectious Disease History: No Infectious Disease History: Denies: Traveled Outside the [place] in Last 30 Days - Family History Known Family History: Positive: Diabetes Negative: Hypertension - Social History Alcohol Use: Daily Alcohol Amount: 1-2 Substance Use Type: Reports: None Smoking Status (MU): Former Smoker Type: Cigarettes Have You Smoked in the Last Year: Yes Review of Systems Constitutional: Negative Eyes: Negative ENT: Negative Cardiovascular: Negative Respiratory: Negative Gastrointestinal: Negative Genitourinary: Negative Musculoskeletal: Negative Positive: Bruising - left knee and ankle Neurological: Negative Positive: Weakness - chronic lower ext, paraplegic for 28 years, Numbness - chronic for 28 years Psychological: Normal All Other Systems Reviewed And Are Negative: No Physical Exam Triage Information Reviewed: Yes Vital Signs On Initial Exam: Initial Vitals Temp Pulse Resp Pulse Ox 98.7 F 118 16 98 02/12/18 14:42 02/12/18 14:42 02/12/18 14:42 02/12/18 14:42 Vital Signs Reviewed: Yes Appearance: Positive: Well-Appearing, No Pain Distress, Well-Nourished - in a wheelchair Skin: Positive: Warm, Dry, Other - left foot is hyperemic. he has bruising to the medial malleolus and dorsum of the foot. he has baseline swelling to this foot as well. Eyes: Positive: Normal, EOMI, VERONA ENT: Positive: Normal ENT inspection, Hearing grossly normal, Pharynx normal Neck: Positive: Supple, Nontender Respiratory/Lung Sounds: Positive: Clear to Auscultation, Breath Sounds Present Cardiovascular: Positive: Normal, RRR Abdomen Description: Positive: Nontender, Soft Bowel Sounds: Positive: Present Musculoskeletal: Positive: Other - flaccid to lower extremities Neurological: Positive: Other - flacid to lower extremities bilaterally Psychiatric: Positive: Normal AVPU Assessment: Alert Diagnostics - Vital Signs Vital Signs Temp Pulse Resp Pulse Ox 02/12/18 14:42 98.7 F 118 16 98 - Laboratory Lab Statement: Any lab studies that have been ordered have been reviewed, and results considered in the medical decision making process. Lower Extremity Course/Dx - Course Course Of Treatment: xrays show no acute fractures. I discussed possibilities with the patient as to why he may have gotten the bruise. he did state that his new wheelchair has a foot stool that he is not use to. he further stated that he is not use to it and he can see how he may have hit it. he states that he has no sensation to his lower extremities so he may have bruised it without knowning it. I will draw cbc, cmp, and coags and have them sent to his [facility] physician. - Diagnoses Provider Diagnoses: Contusion Discharge - Sign-Out/Discharge Documenting (check all that apply): Patient Departure All imaging exams completed and their final reports reviewed: Yes - Discharge Plan Condition: Stable Disposition: HOME Patient Education Materials: Hematoma (ED) Referrals: No Primary Care Phys,NOPCP [Primary Care Provider] - Additional Instructions: return if worse or any new symptoms. I have drawn labs. the results will be sent to your primary care physician. - Billing Disposition and Condition Condition: STABLE Disposition: Home
[2018-02-12 18:47] LABS: ABS Basophils 0 10^3/ul (0-0.2); ABS Eosinophils 0.2 10^3/ul (0-0.6); ABS Lymphocytes 1.3 10^3/ul (1.0-4.8); ABS Monocytes 0.8 10^3/ul (0-0.8); ABS Neutrophils 6.6 10^3/ul (1.5-7.7); ABS Nucleated RBC 0 10^3/ul; Hematocrit 46 % (42-52); Hemoglobin 16.1 g/dl (14.0-18.0); Lymphocyte % 14.3 % (25-47); Mean Corpuscular HGB Conc 35 g/dl (31-36); Mean Corpuscular Hemoglobin 32 pg (27-31); Mean Corpuscular Volume 93 fL (80-94); Mean Platelet Volume 8.7 fL (7.4-10.4); Nucleated Red Blood Cells % 0; Platelet Count 272 10^3/ul (150-450); Red Blood Count 4.96 10^6/ul (4.00-5.40); Red Cell Distribution Width 12 % (10.5-15); White Blood Count 8.8 10^3/ul (3.5-10.8)
[2018-02-12 18:58] LABS: INR 0.86 (0.77-1.02)
[2018-02-13 11:25] LABS: EGFR Non-African American 139.9 (>60)
== END 2018-02-12 16:22 | disposition home or self-care (01) ==
LOC: UCCORT 14:20
DX: S90.02XA Contusion of left ankle, initial encounter (principal); I10 Essential (primary) hypertension; G82.20 Paraplegia, unspecified; X58.XXXA Exposure to other specified factors, initial encounter; Y92.9 Unspecified place or not applicable; Z88.1 Allergy status to other antibiotic agents; Z87.891 Personal history of nicotine dependence; Z72.89 Other problems related to lifestyle
CPT/HCPCS: 36415; 80053; 85025; 85610; 85730; 99211; G0463

== ENCOUNTER 2018-12-07 11:30 | Emergency (ER) | payer MEDICARE ==
--- OUTSIDE RECORDS SUMMARY | 2018-12-07 11:40 | XMS REPORT | Continuity of Care Document ---
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 ETOH Use Currently consumes alcohol socially ETOH Use Consumes 1 beer per day Tobacco Use Start: Unknown End: Patient is a former smoker Unknown Smoking Status Reviewed: 06/19/18 Patient is a former smoker Allergies, Adverse Reactions, Alerts Active Allergies Reaction Severity Comments Date Erythromycin 05/24/2018 Medications Active Medications SIG Qnty Indications Ordering Date Provider Metoprolol Succinate ER 1 by mouth 90tabs Nathanael, 25mg every night Luis Enrique Vargas M.D., Tablets ER 24HR FACC Hydrochlorothiazide 1 by mouth 90tabs Brianenchoco, 25mg Tablets every day Luis Enrique Vargas M.D., FACC Losartan Potassium TK 1 T PO qd Unknown 100mg Tablets Atorvastatin Calcium TK 1 T PO hs Unknown 20mg Tablets Immunizations Description No Information Available Vital Signs Date Vital Result Comment 11/27/2018 10:12am BP Systolic 182 mmHg BP Diastolic 102 mmHg Heart Rate 108 /min Height 71 inches 5'11" Weight 204.00 lb BMI (Body Mass Index) 28.4 kg/m2 BSA (Body Surface Area) 2.13 m2 [place] body weight in kilograms 78 kg O2 % BldC Oximetry 97 % 06/19/2018 10:52am BP Systolic 175 mmHg BP Diastolic 93 mmHg Heart Rate 109 /min O2 % BldC Oximetry 98 % Results Description No Information Available Procedures Description No Information Available Medical Devices Description No Information Available Encounters Type Date Location Provider Dx Diagnosis Office Visit 06/19/2018 Surgical Office Kaiser Westbrook, Z12.11 Encounter for 11:00a TEJAL [facility]DRAG[facility] screening for malignant neoplasm of colon R12 Heartburn K42.9 Umbilical hernia without obstruction or gangrene Assessments Date Code Description Provider 11/27/2018 K42.9 Umbilical hernia without obstruction or Kaiser Westbrook MD, FACS gangrene 11/27/2018 R12 HeartKaiser Olsen MD, FACS 11/27/2018 Z12.11 Encounter for screening for malignant Kaiser Westbrook MD, FACS neoplasm of colon 06/19/2018 Z12.11 Encounter for screening for malignant Kaiser Westbrook MD, FACS neoplasm of colon 06/19/2018 R12 Heartburn Kaiser Westbrook MD, FACS 06/19/2018 K42.9 Umbilical hernia without obstruction or Kaiser Westbrook MD, FACS gangrene Plan of Treatment 11/27/2018 - Kaiser Westbrook MD, FACSK42.9 Umbilical hernia without obstruction or gangreneComments:will plan for open umbilical hernia repair with mesh placement after the colonoscopy and upper endoscopy. Risks and benefits of the procedure were discussed with the patient. Risks include, but are notlimited to , infection, bleeding, hernia recurrence, organ or tissue damage or malfunction , allergy, and potentially . Patient understood and agreed to the procedure.R12 HeartburnComments:has chronic heartburn for many years. i discussed the options and he would like to undergo upper endoscopy at the same time for the colonoscopy, as above.Risks and benefits of the procedure were discussed with the patient. Risks include, but are not limited to, infection, bleeding, organ or tissue damage or malfunction, allergy, and potentially . Patient understood and agreed to the procedure.Z12.11 Encounter for screening for malignant neoplasm of colonComments:will plan for screening colonoscopy and upper endoscopy as per above. he will need medical clearance/ optimization from PCP first because his blood pressure is very high in the clinic. he states it is normal when he checks it at home. he is already on multiple HTN therapy.Risks and benefits of the procedure were discussed with the patient. Risks include, but are not limited to, infection, bleeding, bowel perforation, organ or tissue damage or malfunction, allergy, and potentially . Patient understood and agreed to the procedure. Functional Status Functional Condition Comment Date Status Independent with all ADL's Active Mental Status Description No Information Available Referrals Description No Information Available
[2018-12-07 11:46] VITALS: BP 125/74
--- NOTE | 2018-12-07 12:27 | UC ---
General HPI - HPI Summary HPI Summary: sore throat, minor sinus congestion, headache and fever since yesterday. throat is a little better today. - History of Current Complaint Chief Complaint: UCGeneralIllness Stated Complaint: SORE THROAT Time Seen by Provider: 12/07/18 12:11 Hx Obtained From: Patient Onset/Duration: Gradual Onset Timing: Constant Associated Signs & Symptoms: Negative: Abdominal Pain, Cough, Chest Pain, SOB - Allergy/Home Medications Allergies/Adverse Reactions: Allergies Allergy/AdvReac Type Severity Reaction Status Date / Time erythromycin base Allergy Stomach Verified 12/07/18 11:46 Cramps Home Medications: Home Medications Atorvastatin* [Lipitor*] 20 mg PO DAILY 12/07/18 [History Confirmed 12/07/18] Hydrochlorothiazide TAB* [Hydrodiuril TAB*] 25 mg PO DAILY 12/07/18 [History Confirmed 12/07/18] Losartan TAB* [Cozaar TAB*] 100 mg PO DAILY 12/07/18 [History Confirmed 12/07/18 ] Metoprolol Tartrate TAB* [Lopressor TAB*] 25 mg PO DAILY 12/07/18 [History Confirmed 12/07/18] PMH/Surg Hx/FS Hx/Imm Hx - Additional Past Medical History Additional PMH: parapalegic Endocrine History: Dyslipidemia Cardiovascular History: Hypertension - Surgical History Surgical History: Yes Surgery Procedure, Year, and Place: Fusion at T12 - Family History Known Family History: Positive: Diabetes Negative: Hypertension - Social History Alcohol Use: Daily Alcohol Amount: 1-2 Substance Use Type: None Smoking Status (MU): Former Smoker Type: Cigarettes Have You Smoked in the Last Year: No When Did the Patient Quit Smoking/Using Tobacco: 2017 Household Exposure Type: Cigarettes - Immunization History Most Recent Influenza Vaccination: Fall 2015 Most Recent Tetanus Shot: UTD Most Recent Pneumonia Vaccination: Never Review of Systems All Other Systems Reviewed And Are Negative: Yes Constitutional: Positive: Fever Skin: Negative: Rash Eyes: Negative: Drainage, Eye Redness ENT: Negative: Ear Ache, Sinus Congestion Respiratory: Negative: Shortness Of Breath, Cough Neurological: Positive: Headache Physical Exam Triage Information Reviewed: Yes Appearance: Well-Appearing Vital Signs: Initial Vital Signs Temp 100.2 F 12/07/18 11:41 Pulse 83 12/07/18 11:41 BP 125/74 12/07/18 11:41 Vital Signs Reviewed: Yes Eyes: Positive: Conjunctiva Clear ENT: Positive: Pharyngeal erythema, TMs normal, Uvula midline. Negative: Nasal drainage, Trismus, Muffled voice, Hoarse voice Neck: Positive: Supple, Nontender, No Lymphadenopathy Respiratory: Positive: No respiratory distress Cardiovascular: Positive: RRR Abdomen Description: Positive: Nontender Neurological: Positive: Alert Psychological: Positive: Age Appropriate Behavior Skin Exam: Normal Diagnostics - Laboratory Lab Results: rapid strep=NEGATIVE Course/Dx - Differential Dx - Multi-Symptom Differential Diagnoses: Other - non toxic. rapid strep=neg. antibiotic not indicated. - Diagnoses Provider Diagnosis: URI (upper respiratory infection), Pharyngitis Discharge ED - Sign-Out/Discharge Documenting (check all that apply): Patient Departure All imaging exams completed and their final reports reviewed: No Studies - Discharge Plan Condition: Stable Disposition: HOME Patient Education Materials: Pharyngitis (ED), Upper Respiratory Infection (DC) Referrals: JAVI Arredondo [Medical Doctor] - Additional Instructions: FOLLOW UP IF NOT BETTER IN 5-7 DAYS OR SOONER IF WORSE. - Billing Disposition and Condition Condition: STABLE Disposition: Home - Attestation Statements Provider Attestation: Per institutional requirements, I have reviewed the chart, however, I was not consulted specifically or made aware of this patient by the midlevel provider. I did not personally evaluate, interact with , or disposition this patient.
[2018-12-07] MEDS ORDERED: Ibuprofen ADULT LIQ* 600 MG/30 ML UDC PO ONE (12:38)
== END 2018-12-07 12:43 | disposition home or self-care (01) ==
LOC: UCCORT 11:30
DX: J06.9 Acute upper respiratory infection, unspecified (principal); J02.9 Acute pharyngitis, unspecified; Z88.1 Allergy status to other antibiotic agents; G82.20 Paraplegia, unspecified; I10 Essential (primary) hypertension; Z87.891 Personal history of nicotine dependence
CPT/HCPCS: 87651; 99212; A9270-GY; G0463